=== PATIENT | female | born 1980 | race Caucasian/White ===

== ENCOUNTER 2016-11-09 12:40 | Emergency (ER) | payer SELFPAY ==
[2016-11-09 12:52] VITALS: TEMP 100
--- NOTE | 2016-11-09 13:04 | ED.PDOC ---
History of Present Illness - General Chief Complaint: Fever Stated Complaint: fever, cough Time Seen by Provider: 11/09/16 12:49 Source: patient Exam Limitations: no limitations - History of Present Illness Initial Comments: Yaz Torres 36 y/o female stated that she had non productive cough 2 days ago and this am had low grade fever. no SOB but wirh pleuritic chest pains. Timing/Duration: other - 2 days ago Improving Factors: nothing Worsening Factors: nothing Associated Symptoms: other - see hpi Allergies/Adverse Reactions: Allergies NO KNOWN ALLERGY Allergy (Verified 11/09/16 12:52) Home Medications: Ambulatory Orders Amoxicillin [Amoxil] 1,000 mg PO BID #30 cap 11/09/16 Promethazine-Dm [Promethazine/Dextromethor 6.25-15 mg/5Ml] 2 tsp PO TID PRN # 120 syp 11/09/16 Review of Systems - Review of Systems Constitutional: States: fever EENTM: States: no symptoms reported Respiratory: States: see HPI Cardiology: States: no symptoms reported Gastrointestinal/Abdominal: States: no symptoms reported Genitourinary: States: no symptoms reported Musculoskeletal: States: no symptoms reported Past Medical History (General) - Patient Medical History Hx Asthma: No Hx Cardiac Disorders: No Hx Diabetes: No Surgical History: no surgical history - Vaccination History Hx Tetanus, Diphtheria Vaccination: No Hx Influenza Vaccination: No Hx Pneumococcal Vaccination: No - Social History Hx Tobacco Use: No Hx Alcohol Use: No Hx Substance Use: No Hx Substance Use Treatment: No Hx Depression: No - Activities of Daily Living Hospice Agency (if applicable):: None - Female History Patient is a Female of Child Bearing Age (10 -59 yrs old): Yes Hx Last Menstrual Period: 10/28/16 Patient : No Family Medical History - Family History Mother Family History: Unknown Hx Family Cancer: Yes - Lymphoma -mom Physical Exam - Physical Exam General Appearance: Alert, No apparent distress Eye Exam: bilateral normal Ears, Nose, Throat: hearing grossly normal, normal ENT inspection Neck: non-tender, supple Respiratory: chest non-tender, normal breath sounds, other - speaks in full sentences Cardiovascular/Chest: normal peripheral pulses, regular rate, rhythm, no murmur Gastrointestinal/Abdominal: non tender, soft Back Exam: no CVA tenderness Extremity: non-tender, normal inspection, no calf tenderness Neurologic: alert, normal mood/affect, oriented x 3 Progress - Progress Progress: 11/09/16 13:07 Vital Signs - 8 hr 11/09/16 11/09/16 12:48 12:54 Temperature 100.0 F H Pulse Rate [ 118 H pulse ox] Respiratory 20 20 Rate Blood Pressure 135/82 [Left Arm] O2 Sat by Pulse 100 Oximetry - EKG/XRAY/CT XRAY: chest - no acute abnormality Departure - Departure Clinical Impression: Bronchitis Time of Disposition: 13:52 Disposition: Discharge to Home or Self Care Condition: Good Departure Forms: ED Discharge - Pt. Copy, Patient Portal Self Enrollment Instructions: DI for Acute Bronchitis, Acute Bronchitis Prescriptions: Amoxicillin [Amoxil] 1,000 mg PO BID #30 cap Promethazine-Dm [Promethazine/Dextromethor 6.25-15 mg/5Ml] 2 tsp PO TID PRN # 120 syp PRN Reason: Cough Home Medications: Ambulatory Orders Amoxicillin [Amoxil] 1,000 mg PO BID #30 cap 11/09/16 Promethazine-Dm [Promethazine/Dextromethor 6.25-15 mg/5Ml] 2 tsp PO TID PRN # 120 syp 11/09/16
--- NOTE | 2016-11-09 13:47 | RAD ---
EXAM DESCRIPTION: Chest,2 Views CLINICAL HISTORY: pain COMPARISON: None TECHNIQUE: PA/lateral FINDINGS: There is no cardiac or pulmonary abnormality. The lungs are clear. There is no effusion. IMPRESSION: 1. Normal two-view chest. Electronically signed by: Alvaro Castillo MD 11/09/2016 1:46 PM CDT Workstation: [id number]
[2016-11-09 14:02] VITALS: BP 119/78; O2SAT 97
== END 2016-11-09 14:02 | disposition home or self-care (01) ==
LOC: ER 12:40
DX: J40 Bronchitis, not specified as acute or chronic (principal)

== ENCOUNTER 2016-11-18 18:15 | Emergency (ER) | payer SELFPAY ==
[2016-11-18] MEDS ORDERED: ACETAMINOPHEN 325 MG TAB PO ONE (18:48)
--- NOTE | 2016-11-18 19:17 | ED.PDOC ---
History of Present Illness - General Chief Complaint: Fever Stated Complaint: fever, cough Time Seen by Provider: 11/18/16 18:44 Source: patient Exam Limitations: no limitations - History of Present Illness Initial Comments: Patient presents with a fever and right flank pain. She was recently treated for bronchitis. She has had an intermittent cough that is productive of green sputum. No hemoptysis. No dyspnea. Flank pain is constant but intermittent in intensity, worse with coughing and movement, better with rest, cramping in nature, no previous episodes. No other complaints. Timing/Duration: 24 hours Severity: mild Improving Factors: rest Worsening Factors: movement, other - coughing Associated Symptoms: denies symptoms Allergies/Adverse Reactions: Allergies NO KNOWN ALLERGY Allergy (Verified 11/09/16 12:52) Home Medications: Ambulatory Orders Amoxicillin [Amoxil] 1,000 mg PO BID #30 cap 11/09/16 Promethazine-Dm [Promethazine/Dextromethor 6.25-15 mg/5Ml] 2 tsp PO TID PRN # 120 syp 11/09/16 Review of Systems - Review of Systems Constitutional: States: no symptoms reported EENTM: States: no symptoms reported Respiratory: States: see HPI Cardiology: States: no symptoms reported Gastrointestinal/Abdominal: States: no symptoms reported Genitourinary: States: no symptoms reported Musculoskeletal: States: see HPI Skin: States: no symptoms reported Neurological: States: no symptoms reported Endocrine: States: no symptoms reported Hematologic/Lymphatic: States: no symptoms reported Past Medical History (General) - Patient Medical History Hx Asthma: No Hx Cardiac Disorders: No Hx Diabetes: No Surgical History: no surgical history - Vaccination History Hx Tetanus, Diphtheria Vaccination: No Hx Influenza Vaccination: No Hx Pneumococcal Vaccination: No - Social History Hx Tobacco Use: No Hx Alcohol Use: No Hx Substance Use: No Hx Substance Use Treatment: No Hx Depression: No - Female History Hx Last Menstrual Period: 10/28/16 Patient : No Family Medical History - Family History Mother Family History: Unknown Hx Family Cancer: Yes - Lymphoma -mom Physical Exam - Physical Exam General Appearance: Alert Respiratory: lungs clear Cardiovascular/Chest: tachycardia Gastrointestinal/Abdominal: normal bowel sounds, non tender, soft, tenderness - Mild TTP over RUQ, right flank, and RLQ. Back Exam: no CVA tenderness Skin Exam: normal color Progress - Progress Progress: 11/18/16 22:45 WBC 16.1. EKG showed sinus tachycardia. Patient started on NS bolus and cultures taken and sent. AP elevated. Suspicious for biliary duct or renal etiology. CT abdomen/pelvis showed right staghorn calculi with area of attenuation consistent with abscess as well as air bubbles. Patient given Zosyn 3.375 grams IV and Aztreonam 1 gram IV x one. Dr. Damian from urology at [facility] contacted and patient tranferred there for emergent surgical intervention. 11/18/16 22:48 It was also noticed that the patient had a high blood sugar. HbA1c was 14.1 indicating that she is an undiagnosed Type II diabetic. Patient informed of the above information. Laboratory Tests 11/18/16 11/18/16 11/18/16 18:59 18:59 18:59 WBC 16.1 H RBC 3.81 L Hgb 8.4 L Hct 26.4 L MCV 69.4 L MCH 22.0 L MCHC 31.9 L RDW 18.8 H Plt Count 742 H MPV 7.0 L Absolute Neuts (auto) 15.00 H Absolute Lymphs (auto) 0.60 L Absolute Monos (auto) 0.40 Absolute Eos (auto) 0.10 Absolute Basos (auto) 0.10 Neutrophils % 93.1 H Lymphocytes % 3.5 L Monocytes % 2.7 Eosinophils % 0.3 L Basophils % 0.4 Normal RBC Morphology 1+aniso Sodium 129 L Potassium 3.1 L Chloride 93 L Carbon Dioxide 24 Anion Gap 15.1 BUN < 5 L Creatinine 0.80 BUN/Creatinine Ratio 6.2 L Random Glucose 379 H Hemoglobin A1c Serum Osmolality 272.3 L Lactic Acid Calcium 8.6 Total Bilirubin 0.8 AST 28 ALT 22 Alkaline Phosphatase 261 H C-Reactive Protein 28.8 H* Serum Total Protein 8.3 H Albumin 2.6 L Globulin 5.7 H Albumin/Globulin Ratio 0.5 L Urine Color Urine Appearance Urine pH Ur Specific [place] Urine Protein Urine Glucose (UA) Urine Ketones Urine Blood Urine Nitrite Urine Bilirubin Urine Urobilinogen Ur Leukocyte Esterase Urine RBC Urine WBC Ur Epithelial Cells Amorphous Sediment Urine Bacteria Coarse Granular Casts Urine Mucus Urine HCG, Qual 11/18/16 11/18/16 11/18/16 19:20 19:21 19:41 WBC RBC Hgb Hct MCV MCH MCHC RDW Plt Count MPV Absolute Neuts (auto) Absolute Lymphs (auto) Absolute Monos (auto) Absolute Eos (auto) Absolute Basos (auto) Neutrophils % Lymphocytes % Monocytes % Eosinophils % Basophils % Normal RBC Morphology Sodium Potassium Chloride Carbon Dioxide Anion Gap BUN Creatinine BUN/Creatinine Ratio Random Glucose Hemoglobin A1c Serum Osmolality Lactic Acid 1.4 Calcium Total Bilirubin AST ALT Alkaline Phosphatase C-Reactive Protein Serum Total Protein Albumin Globulin Albumin/Globulin Ratio Urine Color Yellow Urine Appearance Cloudy Urine pH 5.5 Ur Specific [place] 1.020 Urine Protein 30 Urine Glucose (UA) 500 H Urine Ketones Negative Urine Blood Small H Urine Nitrite Positive H Urine Bilirubin Negative Urine Urobilinogen 0.2 Ur Leukocyte Esterase Small H Urine RBC 5-10 H Urine WBC >100 H Ur Epithelial Cells 5-10 Amorphous Sediment Trace Urine Bacteria 1+ Coarse Granular Casts 0-1 Urine Mucus Trace Urine HCG, Qual Negative 11/18/16 19:47 WBC RBC Hgb Hct MCV MCH MCHC RDW Plt Count MPV Absolute Neuts (auto) Absolute Lymphs (auto) Absolute Monos (auto) Absolute Eos (auto) Absolute Basos (auto) Neutrophils % Lymphocytes % Monocytes % Eosinophils % Basophils % Normal RBC Morphology Sodium Potassium Chloride Carbon Dioxide Anion Gap BUN Creatinine BUN/Creatinine Ratio Random Glucose Hemoglobin A1c 14.1 H Serum Osmolality Lactic Acid Calcium Total Bilirubin AST ALT Alkaline Phosphatase C-Reactive Protein Serum Total Protein Albumin Globulin Albumin/Globulin Ratio Urine Color Urine Appearance Urine pH Ur Specific [place] Urine Protein Urine Glucose (UA) Urine Ketones Urine Blood Urine Nitrite Urine Bilirubin Urine Urobilinogen Ur Leukocyte Esterase Urine RBC Urine WBC Ur Epithelial Cells Amorphous Sediment Urine Bacteria Coarse Granular Casts Urine Mucus Urine HCG, Qual Departure - Departure Clinical Impression: Renal abscess Disposition: Transfer to Hospital Condition: Fair Departure Forms: ED Discharge - Pt. Copy, Patient Portal Self Enrollment Diet: other - NPO Activity: other - as per hospitalist Home Medications: Ambulatory Orders Amoxicillin [Amoxil] 1,000 mg PO BID #30 cap 11/09/16 Promethazine-Dm [Promethazine/Dextromethor 6.25-15 mg/5Ml] 2 tsp PO TID PRN # 120 syp 11/09/16
[2016-11-18] MEDS ORDERED: SODIUM CHLORIDE 0.9% 1000ML 1,000 ML IVS ONE ×2 (19:26→23:00)
[2016-11-18] MEDS ORDERED: cefTRIAXone SODIUM 1 GM in SODIUM CHL 0.9% 50ML MIN-BAG+ 50 ML IVPB ONE (19:27)
[2016-11-18] MEDS ORDERED: AZITHROMYCIN IV 500 MG in SODIUM CHLORIDE 0.9% 250ML 250 ML IVPB ONE (19:28)
[2016-11-18] MEDS ORDERED: PIPERACILLIN/TAZOBACTAM 3.375 GM in SODIUM CHLORIDE 0.9% 100ML 100 ML IVPB ONE (19:36)
[2016-11-18] MEDS ORDERED: AZTREONAM 1 GM in SODIUM CHL 0.9% 50ML MIN-BAG+ 50 ML IVPB ONE (19:36)
--- NOTE | 2016-11-18 19:37 | RAD ---
EXAM: Chest,2 Views CLINICAL INDICATION: 36-year-old female with cough and fever. TECHNIQUE: Two-view, PA and lateral projections of the chest were obtained. COMPARISON: 11/09/2016. FINDINGS: Unremarkable cardiac and mediastinal silhouette. Heart size is normal. Lungs are clear without focal opacity, pneumothorax or pleural effusions. The visualized bones are within normal limits. IMPRESSION: No acute cardiopulmonary abnormalities. Electronically signed by: Heidi Palencia MD 11/18/2016 7:36 PM CDT Workstation: [id number]
[2016-11-18] MEDS ORDERED: SODIUM CHL 0.9% 50ML MIN-BAG+ 50 ML IVPB ONE (19:40)
[2016-11-18] MEDS ORDERED: SODIUM CHLORIDE 0.9% 100ML 100 ML IVPB ONE (19:40)
[2016-11-18] MEDS ORDERED: AZTREONAM 1 GM VIAL ONE (19:40)
[2016-11-18] MEDS ORDERED: PIPERACILLIN/TAZOBACTAM 3.375 GM VIAL IVPB ONE (19:40)
[2016-11-18] MEDS ORDERED: KCL 40 MEQ/WATER FOR INJECTION 40 MEQ in PREMIX BAG 1 BAG IVPB ONE (20:16)
[2016-11-18] MEDS ORDERED: KCL 40 MEQ/WATER FOR INJECTION 100 ML IVPB ONE (21:27)
--- NOTE | 2016-11-18 21:41 | CT ---
EXAM DESCRIPTION: Abdomen/Pelvis w/Contrast CLINICAL HISTORY: sepsis, RUQ and right flank pain, elevated AP COMPARISON: None Available TECHNIQUE: Contiguous axial images of the abdomen and pelvis were obtained after the administration of intravenous contrast followed by reconstruction images.This exam was performed according to our departmental dose-optimization program, which includes automated exposure control, adjustment of the mA and/or kV according to patient size and/or use of iterative reconstruction technique. FINDINGS: 3.4 cm staghorn calculi is visualized within the right renal pelvis causing right-sided hydronephrosis. There is an area of low-attenuation with small air bubbles medial to the calculus compatible with an infectious process. Entire process measures 5.8 x 5 cm It is uncertain if this represent a separate abscess versus a dilated renal pelvis however fat planes of the posterior aspect of this cystic structure are obliterated with the adjacent psoas and retroperitoneum and therefore suspicious for an abscess. Recommend follow up. There is suboptimal delineation of the proximal ureter by this process. There is stranding of the adjacent fat. Appendix was not visualized, there is no pericecal inflammation. Additional large calculi is noted within the posterior aspect of the right kidney. Linear opacities within the right lung may represent scar versus subsegmental atelectasis. The liver, spleen, pancreas and left kidney are within normal limits. The gallbladder is unremarkable by CT criteria. Adrenal glands are within normal limits. Aorta is of normal caliber and tapering. There is no free fluid in the abdomen or pelvis. There is no bowel obstruction. IMPRESSION: 3.4 cm staghorn calculi within the right renal pelvis causing right-sided hydronephrosis. There is an area of low-attenuation with small air bubbles medial to the calculus compatible with an infectious process/abscess as described. Recommend follow up. Electronically signed by: Flaco Lara MD 11/18/2016 9:40 PM CDT Workstation: [id number]
[2016-11-18] MEDS ORDERED: SODIUM CHLORIDE 0.9% 1000ML 1,000 ML ONE (22:17)
[2016-11-18 22:18] VITALS: O2SAT 100
[2016-11-18 23:45] VITALS: BP 111/72; TEMP 98.7
== END 2016-11-18 23:15 | disposition short-term general hospital (02) ==
LOC: ER 18:15
DX: N15.1 Renal and perinephric abscess (principal); R00.0 Tachycardia, unspecified
CPT/HCPCS: 36415; 71020; 74177; 80053; 81001; 81025; 83036; 83605; 85025; 86140; 87040; 87086; 93005; J2543; J3480; J7030; J7050

== ENCOUNTER 2016-11-29 02:10 | Emergency (ER) | payer SELFPAY ==
[2016-11-29 03:03] VITALS: BP 135/88; TEMP 98.7; O2SAT 97
--- NOTE | 2016-11-29 04:31 | ED.PDOC ---
History of Present Illness - General Chief Complaint: Post Op Problems Stated Complaint: IVA drain fell out, Source: patient Exam Limitations: no limitations - History of Present Illness Initial Comments: Yaz Torres 36 y/o female with recent right kidney infection and J-P drain insertion ct guided 1o days ago was done and receiving iv antibiotics came to ER tonight after iva drain tube accidentally pulled out partially Timing/Duration: 1 hour Severity: mild Improving Factors: nothing Worsening Factors: nothing Associated Symptoms: denies symptoms Allergies/Adverse Reactions: Allergies NO KNOWN ALLERGY Allergy (Verified 11/09/16 12:52) Home Medications: Ambulatory Orders Promethazine-Dm [Promethazine/Dextromethor 6.25-15 mg/5Ml] 2 tsp PO TID PRN # 120 syp 11/09/16 Levemir Pen 11/29/16 Novolog 11/29/16 Oxybutynin Chloride 11/29/16 Zofran 11/29/16 Review of Systems - Review of Systems Constitutional: States: no symptoms reported EENTM: States: no symptoms reported Respiratory: States: no symptoms reported Cardiology: States: no symptoms reported Gastrointestinal/Abdominal: States: no symptoms reported Genitourinary: States: see HPI Musculoskeletal: States: no symptoms reported Past Medical History (General) - Patient Medical History Hx Asthma: No Hx Cardiac Disorders: No Hx Diabetes: Yes Hx Renal Disease: Yes - pyelitis right Surgical History: other - right kidney iva drain tube insertion ct guided - Vaccination History Hx Tetanus, Diphtheria Vaccination: No Hx Influenza Vaccination: No Hx Pneumococcal Vaccination: No Immunizations Up to Date: Yes - Social History Hx Tobacco Use: No Hx Alcohol Use: No Hx Substance Use: No Hx Substance Use Treatment: No Hx Depression: No - Activities of Daily Living Patient Lives Alone: No - family - Female History Patient is a Female of Child Bearing Age (10 -59 yrs old): Yes Hx Last Menstrual Period: 10/28/16 Patient : No - Triage Comment ED Triage Comment: discharged home from [facility] today, to have outpt antibiotic therapy, but here because one of IVA drains came out Pt states minimal drainage measured.in tubes Family Medical History - Family History Mother Family History: Unknown Hx Family Cancer: Yes - Lymphoma -mom Physical Exam - Physical Exam General Appearance: Agitated, No apparent distress Eye Exam: bilateral normal Ears, Nose, Throat: hearing grossly normal, normal ENT inspection Neck: non-tender, supple Respiratory: chest non-tender, lungs clear Cardiovascular/Chest: normal peripheral pulses, regular rate, rhythm, no murmur Gastrointestinal/Abdominal: normal bowel sounds, non tender, soft Back Exam: other - J P drain tube accidentally pulled out Progress - Progress Progress: 11/29/16 04:34 Vital Signs - 8 hr 11/29/16 02:58 Temperature 98.7 F Pulse Rate [ 120 H Left] Respiratory 18 Rate Blood Pressure 135/88 [Left Arm] O2 Sat by Pulse 97 Oximetry 11/29/16 04:35 Patient decided to leave [facility] ;has antibiotic iv infusion in am Departure - Departure Clinical Impression: Jae brown drain site pain Time of Disposition: 04:37 Disposition: Left Against Medical Advice Condition: Fair Departure Forms: ED Discharge - Pt. Copy, Patient Portal Self Enrollment Home Medications: Ambulatory Orders Promethazine-Dm [Promethazine/Dextromethor 6.25-15 mg/5Ml] 2 tsp PO TID PRN # 120 syp 11/09/16 Levemir Pen 11/29/16 Novolog 11/29/16 Oxybutynin Chloride 11/29/16 Zofran 11/29/16 Additional Instructions: Advised to call UROLOGIST office in am
== END 2016-11-29 03:34 | disposition left against medical advice (07) ==
LOC: ER 02:10
DX: Z48.03 Encounter for change or removal of drains (principal); E11.9 Type 2 diabetes mellitus without complications

== ENCOUNTER 2016-12-03 21:52 | Emergency (ER) | payer SELFPAY ==
[2016-12-03 22:09] VITALS: BP 116/73; TEMP 99.2; O2SAT 100
--- NOTE | 2016-12-03 22:11 | ED.PDOC ---
History of Present Illness - General Chief Complaint: General Stated Complaint: wants bandage changed on J/P drain Time Seen by Provider: 12/03/16 22:02 Source: patient, RN notes reviewed, Vital Signs reviewed, old records Exam Limitations: no limitations - History of Present Illness Initial Comments: Patient came to ER because pus is draining around her FLORA tube. She is still getting IV antibiotics twice daily for her infection and FLORA tube is scheduled to come out on Monday. No other concerns or complaints. Timing/Duration: 4-6 hours Severity: moderate Improving Factors: nothing Worsening Factors: nothing Associated Symptoms: denies symptoms Allergies/Adverse Reactions: Allergies NO KNOWN ALLERGY Allergy (Verified 12/03/16 22:09) Home Medications: Ambulatory Orders Acetaminophen W/ Codeine [Acetaminophen/Codeine #3 300-30 mg] 1 tab PO Q6H PRN 11/29/16 Insulin Aspart [Novolog] 10 unit SC TIDFD 11/29/16 Insulin Detemir [Levemir] 40 unit SUBCU DAILY 11/29/16 Ondansetron Tab [Zofran Tab] 4 mg PO Q8H PRN 11/29/16 Oxybutynin Chloride 5 mg PO Q6H PRN 11/29/16 Promethazine-Dm [Promethazine/Dextromethor 6.25-15 mg/5Ml] 10 ml PO TID Review of Systems - Review of Systems Constitutional: States: no symptoms reported Respiratory: States: no symptoms reported Cardiology: States: no symptoms reported Genitourinary: States: other - Hydronephrosis and infection with FLORA drain in place Musculoskeletal: States: no symptoms reported Skin: States: no symptoms reported Neurological: States: no symptoms reported All other Systems: No Change from Baseline Past Medical History (General) - Patient Medical History Hx Seizures: No Hx Stroke: No Hx Dementia: No Hx Asthma: No Hx of COPD: No Hx Cardiac Disorders: No Hx Congestive Heart Failure: No Hx Pacemaker: No Hx Hypertension: No Hx Thyroid Disease: No Hx Diabetes: Yes Hx Gastroesophageal Reflux: No Hx Renal Disease: No Hx Cancer: No Hx of HIV: No Hx Hepatitis C: No Hx MRSA: No Surgical History: other - Vaccination History Hx Tetanus, Diphtheria Vaccination: No Hx Influenza Vaccination: No Hx Pneumococcal Vaccination: No Immunizations Up to Date: No - Social History Hx Tobacco Use: No Hx Chewing Tobacco Use: No Hx Alcohol Use: No Hx Substance Use: No Hx Substance Use Treatment: No Hx Depression: No Feels Threatened In Home Enviroment: No Feels Threatened In a Relationship: No Hx Physical Abuse: No Hx Emotional Abuse: No Hx Suspected Abuse: No - Female History Patient is a Female of Child Bearing Age (10 -59 yrs old): Yes Hx Last Menstrual Period: 10/28/16 Patient : No Family Medical History - Family History Mother Family History: Unknown Living Status: Age at (years of age): 58 Hx Family Asthma: No Hx Family Congestive Heart Failure: No Hx Family Hypertension: No Hx Family Stroke: No Hx Cardiac Disease: No Hx Family Diabetes: No Hx Family Cancer: Yes - Lymphoma -mom Hx Family;Other: Mother 3 years ago from cancer in her throat. Physical Exam - Physical Exam General Appearance: Alert, Comfortable, No apparent distress, Well Developed, Well Groomed, Well Hydrated, Well Nourished Respiratory: no respiratory distress Back Exam: other - FLORA drain in back with purulent drainage around tube. Bulb suction is fully inflated and is not providing any suction. Extremity: normal inspection Neurologic: alert, normal mood/affect, oriented x 3 Skin Exam: normal color, warm/dry Comments: Vital Signs 12/03/16 22:00 Temperature 99.2 F Pulse Rate [ 98 H monitor] Respiratory 16 Rate Blood Pressure 116/73 [Left Arm] O2 Sat by Pulse 100 Oximetry Progress - Progress Progress: 12/03/16 22:12 Discussed with patient how bulb suction is suppose to work and pus is draining around the tube due to there being no suction on tube. FLORA tube area cleaned and redressed by Nurse. Departure - Departure Clinical Impression: Renal abscess, Jae brown drain site pain Time of Disposition: 22:14 Disposition: Discharge to Home or Self Care Condition: Good Departure Forms: ED Discharge - Pt. Copy, Patient Portal Self Enrollment Instructions: DI for Jae-Brown Drains, How to Use and Care for Your Jae -Brown Drain Diet: resume usual diet Activity: increase activity as tolerated Home Medications: Ambulatory Orders Acetaminophen W/ Codeine [Acetaminophen/Codeine #3 300-30 mg] 1 tab PO Q6H PRN 11/29/16 Insulin Aspart [Novolog] 10 unit SC TIDFD 11/29/16 Insulin Detemir [Levemir] 40 unit SUBCU DAILY 11/29/16 Ondansetron Tab [Zofran Tab] 4 mg PO Q8H PRN 11/29/16 Oxybutynin Chloride 5 mg PO Q6H PRN 11/29/16 Promethazine-Dm [Promethazine/Dextromethor 6.25-15 mg/5Ml] 10 ml PO TID
== END 2016-12-03 22:30 | disposition home or self-care (01) ==
LOC: ER 21:52
DX: Z48.03 Encounter for change or removal of drains (principal); N15.1 Renal and perinephric abscess